=== PATIENT | male | born 1965 | race Caucasian/White ===

== ENCOUNTER 2021-12-22 08:15 | Emergency (ER) | payer BC ==
[2021-12-22 08:58] LABS: Bilirubin Negative (Negative); Blood, Urine Negative (Negative); Clarity Clear (Clear); Glucose, Urine (Dipstick) Normal (Negative); Ketone, Urine Negative (Negative); Leukocyte Negative Leu/uL (Negative); Nitrite Negative (Negative); Protein, Urine (Dipstick) Negative (Neg-Trace); Specific Gravity, Urine 1.014 (1.002-1.036); Urobilinogen Normal mg/dL (Less than 2)
[2021-12-22 09:10] LABS: #Eosinphils 0.1 thou/uL (0.0-0.7); #Lymphocytes 2.1 thou/uL (1.20-3.40); #Monocytes 0.6 thou/uL (0.11-0.59); #Neutrophils 4.1 thou/uL (1.40-6.50); %Basophils 0.6 % (0.0-1.0); %Lymphocytes 30.9 % (21.0-51.0); %Monocytes 8.6 % (0.0-10.0); %Neutrophils 58.8 % (42.0-75.0); Hemoglobin 16.8 g/dL (14.0-18.0); Mean Corpuscular HGB CONC 33.4 g/dL (32.0-36.0); Mean Corpuscular Hemoglobin 30.6 pg (27.0-31.0); Mean Corpuscular Volume 91.6 fL (78.0-98.0); Mean Platelet Volume 6.8 fL (7.4-10.4); Platelet Count 224 thou/uL (130-400); RBC Distribution Width 11.7 % (11.5-14.5); Red Blood Cell (RBC) Count 5.49 mill/uL (4.70-6.10); White Blood Cell (WBC) Count 6.9 thou/uL (4.8-10.8)
[2021-12-22 09:29] LABS: ALT (SGPT) 22 U/L (8-55); AST (SGOT) 18 U/L (5-34); Albumin 4.3 g/dL (3.5-5.0); Alkaline Phosphatase 51 U/L (40-110); Anion Gap 13 mmol/L (10-20); BUN (Urea Nitrogen) 19 mg/dL (8.4-25.7); Bilirubin, Total 0.7 mg/dL (0.2-1.2); Calc. Creatinine Clearance 0 mL/min (70-130); Calcium 9.3 mg/dL (7.8-10.44); Carbon Dioxide 23 mmol/L (22-29); Chloride 107 mmol/L (98-107); Globulin 2.9 g/dL (2.4-3.5); Glucose 85 mg/dL (70-105); Potassium 3.8 mmol/L (3.5-5.1); Protein, Total 7.2 g/dL (6.0-8.3); Sodium 139 mmol/L (136-145)
[2021-12-22] MEDS ORDERED: Aspirin Chewable 81 MG TAB ONE (09:45)
== END 2021-12-22 11:05 | disposition home or self-care (01) ==
LOC: ERS 08:15
DX: R07.89 Other chest pain (principal)
CPT/HCPCS: 36415; 80053; 81003; 84484; 85025; 93005

== ENCOUNTER 2022-01-08 08:31 | Outpatient (CLI) | payer BC ==
[2022-01-08 09:44] LABS: Hemoglobin 15.7 g/dL (13.5-17.5); Mean Corpuscular HGB CONC 32.8 g/dL (32.0-36.0); Mean Corpuscular Hemoglobin 29.3 pg (27.0-33.0); Mean Corpuscular Volume 89.4 fl (81.2-95.1); Mean Platelet Volume 9.3 fl (7.4-10.4); Platelet Count 234 10x3/uL (150-450); RBC Distribution Width 12.5 % (11.5-14.5); Red Blood Cell (RBC) Count 5.36 10x6/uL (4.32-5.72); White Blood Cell (WBC) Count 7.1 10x3/uL (3.5-10.5)
[2022-01-08 09:59] LABS: PTT 25.2 sec (22.0-33.0); Prothrombin Time 11.2 sec (9.5-12.1)
[2022-01-08 10:02] LABS: Anion Gap 11 mmol/L (10-20); BUN (Urea Nitrogen) 19 mg/dL (8.4-25.7); Calc. Creatinine Clearance 0 mL/min (70-130); Calcium 8.9 mg/dL (7.8-10.44); Carbon Dioxide 26 mmol/L (22-29); Chloride 106 mmol/L (98-107); Glucose 96 mg/dL (70-105); Potassium 4.3 mmol/L (3.5-5.1); Sodium 139 mmol/L (136-145)
[2022-01-08 20:43] LABS: SARS-CoV-2 PCR by NAA Not Detected (NotDetected)
== END 2022-01-08 08:32 | disposition home or self-care (01) ==
LOC: LABBT 08:31
PROVIDERS: ATTEND Surgery
DX: Z01.812 Encounter for preprocedural laboratory examination (principal); M50.122 Cervical disc disorder at C5-C6 level with radiculopathy; M48.02 Spinal stenosis, cervical region; Z20.822 Contact with and (suspected) exposure to COVID-19
CPT/HCPCS: 80048; 85027; 85610; 85730; 86850; 86900; 86901; U0003; U0005

== ENCOUNTER 2022-01-11 07:03 | Observation (INO) | payer BC ==
[2022-01-02 12:51] VITALS: BMI 25.7
[2022-01-08 09:44] LABS: Hemoglobin 15.7 g/dL (13.5-17.5); Mean Corpuscular HGB CONC 32.8 g/dL (32.0-36.0); Mean Corpuscular Hemoglobin 29.3 pg (27.0-33.0); Mean Corpuscular Volume 89.4 fl (81.2-95.1); Mean Platelet Volume 9.3 fl (7.4-10.4); Platelet Count 234 10x3/uL (150-450); RBC Distribution Width 12.5 % (11.5-14.5); Red Blood Cell (RBC) Count 5.36 10x6/uL (4.32-5.72); White Blood Cell (WBC) Count 7.1 10x3/uL (3.5-10.5)
[2022-01-08 09:59] LABS: PTT 25.2 sec (22.0-33.0); Prothrombin Time 11.2 sec (9.5-12.1)
[2022-01-08 10:02] LABS: Anion Gap 11 mmol/L (10-20); BUN (Urea Nitrogen) 19 mg/dL (8.4-25.7); Calc. Creatinine Clearance 0 mL/min (70-130); Calcium 8.9 mg/dL (7.8-10.44); Carbon Dioxide 26 mmol/L (22-29); Chloride 106 mmol/L (98-107); Glucose 96 mg/dL (70-105); Potassium 4.3 mmol/L (3.5-5.1); Sodium 139 mmol/L (136-145)
[2022-01-08 20:43] LABS: SARS-CoV-2 PCR by NAA Not Detected (NotDetected)
[2022-01-11] MEDS ORDERED: Thrombin 5000 UNITS/5 ML VIAL ONE (08:09)
[2022-01-11] MEDS ORDERED: ceFAZolin 2 GM/Dextrose 50 ML IVPB ONE (09:10)
[2022-01-11] MEDS ORDERED: Midazolam HCl 2 mg/2 ml Vial ONE (09:21)
[2022-01-11] MEDS ORDERED: Lidocaine 2% Jelly 5 ML TUBE ONE (09:21)
[2022-01-11] MEDS ORDERED: Fentanyl 250 MCG/5 ML VIAL ONE (09:21)
[2022-01-11] MEDS ORDERED: Lidocaine 1% PF 5 ML VIAL ONE (09:54)
[2022-01-11] MEDS ORDERED: PROPOFOL 200 MG/20 ML VIAL ONE (09:54)
[2022-01-11] MEDS ORDERED: Dexamethasone 20 MG/5 ML VIAL ONE (09:54)
[2022-01-11] MEDS ORDERED: ePHEDrine 50 MG/ML VIAL ONE (09:54)
[2022-01-11] MEDS ORDERED: PHENYLEPHRINE-NS 100 MCG/ML 10 ML SYRINGE ONE (09:54)
[2022-01-11] MEDS ORDERED: Glycopyrrolate 0.2 MG/ML 5 ML SYRINGE ONE (09:54)
[2022-01-11] MEDS ORDERED: Ketorolac Tromethamine 30 MG/ML VIAL ONE (09:54)
[2022-01-11] MEDS ORDERED: Ondansetron PF 4 MG/2 ML Vial ONE (09:54)
[2022-01-11] MEDS ORDERED: Rocuronium Bromide 10 MG/ML (10ML VIAL) ONE (09:54)
[2022-01-11] MEDS ORDERED: HYDROmorphone 2 MG/ML VIAL SLOW IVP PRN (12:12)
[2022-01-11] MEDS ORDERED: Acetaminophen 325 MG TAB PO PRN (12:12)
[2022-01-11] MEDS ORDERED: Promethazine HCl 25 MG/ML VIAL IVPB PRN (12:12)
[2022-01-11] MEDS ORDERED: Ondansetron HCl/PF 4 MG/2 ML Vial IVP PRN (12:12)
[2022-01-11] MEDS ORDERED: HYDROcodone/Acetaminophen 7.5/325 mg Tablet PO PRN (12:12)
[2022-01-11] MEDS ORDERED: Promethazine HCl 25 MG/ML VIAL IM PRN (12:12)
[2022-01-11] MEDS ORDERED: Fentanyl 100 MCG/2 ML VIAL ONE ×2 (12:15→12:52)
[2022-01-11] MEDS ORDERED: Morphine 4 MG/ML VIAL SLOW IVP PRN (12:22)
[2022-01-11] MEDS: Acetaminophen/Codeine 30-300mg Tablet PO PRN ×2 (14:27→20:06)
[2022-01-11] MEDS: tiZANidine HCl 4 MG TAB PO PRN ×2 (14:28→23:49)
[2022-01-11] MEDS: Sodium Chloride 0.9% 1,000 ML IV SCH ×2 (14:43→17:18)
[2022-01-11] MEDS ORDERED: Fentanyl 100 MCG/2 ML VIAL SLOW IVP PRN (16:24)
[2022-01-11] MEDS ORDERED: ceFAZolin 2 GM/Dextrose 50 ML 2 GM in Premix Bag 1 BAG IVPB SCH (17:00)
[2022-01-11] MEDS ORDERED: CEFAZOLIN 2 GM in Sodium Chloride 0.9% 100 ML IVPB SCH (17:00)
[2022-01-11] MEDS: traMADol HCl 50 MG TAB PO PRN (17:13)
[2022-01-11] MEDS ORDERED: CEFAZOLIN 2 GM, Admixture Fee 1 EACH in Sodium Chloride 0.9% 100 ML IVPB SCH (17:45)
[2022-01-12] MEDS: Sodium Chloride 0.9% 1,000 ML IV SCH (00:39)
[2022-01-12] MEDS ORDERED: CEFAZOLIN 2 GM, Admixture Fee 1 EACH in Sodium Chloride 0.9% 100 ML IVPB SCH (01:00)
[2022-01-12] MEDS: traMADol HCl 50 MG TAB PO PRN (01:43)
[2022-01-12 08:03] VITALS: BP 141/78; TEMP 97.7
== END 2022-01-12 09:50 | disposition home or self-care (01) ==
LOC: SDC 07:03 → SURG A 12:14
PROVIDERS: ADMIT Surgery; ATTEND Surgery
PROC: 0RG20A0 Fusion of 2 or more Cervical Vertebral Joints with Interbody Fusion Device, Anterior Approach, Anterior Column, Open Approach (ICD-10-PCS; principal; 2022-01-11)
DX: M50.122 Cervical disc disorder at C5-C6 level with radiculopathy (principal); M48.02 Spinal stenosis, cervical region; G62.89 Other specified polyneuropathies; M25.9 Joint disorder, unspecified; Z88.8 Allergy status to other drugs, medicaments and biological substances; Z20.822 Contact with and (suspected) exposure to COVID-19
CPT/HCPCS: 76000; 80048; 85027; 85610; 85730; 86850; 86900; 86901; 96374; 96376; C1713; C1776; G0378; J0690; J1100; J1885; J2250; J2405; J2704; J3010; J3490; J7050; U0003; U0005

== ENCOUNTER 2022-07-26 08:04 | Outpatient (CLI) | payer BC | END 2022-07-26 08:05 | disposition home or self-care (01) | LOC: TBSIIMAG 08:04 | PROVIDERS: ATTEND Surgery | DX: M48.062 Spinal stenosis, lumbar region with neurogenic claudication (principal); M47.816 Spondylosis without myelopathy or radiculopathy, lumbar region | CPT/HCPCS: 72120; 72148 ==